=== PATIENT | female | born 2000 | race Caucasian/White ===

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

== ENCOUNTER 2019-02-27 23:38 | Emergency (ER) | payer BC ==
[~2019-02-27] VITALS: Ht 160 cm; Wt 68.0 kg
[2019-02-28 00:14] VITALS: BP_SYST 117
--- NOTE | 2019-02-28 02:07 | NUR ---
Pt ambulatory to bed 2 for evaluation
--- NOTE | 2019-02-28 03:00 | NUR ---
Patient complains of left shoulder pain. Pt states at first, her neck was in pain and gradually radiated to the left shoulder and down to arm. Pt denies any trauma. Pt states she feels "tingling to arm and not so much pain." No other injuries/complaints per patient or noted.
--- NOTE | 2019-02-28 03:15 | NUR ---
ER Dr. Pruitt at bedside examining patient.
[2019-02-28] MEDS ORDERED: KETOROLAC TROMETHAMINE 60 MG/2 ML VIAL IM ONE (03:45)
--- NOTE | 2019-02-28 03:52 | NUR ---
Medication was given, pt tolerated well. No adverse reaction, will continue to monitor.
--- NOTE | 2019-02-28 03:53 | NUR ---
Patient was taken to radiology in stable condition.
--- NOTE | 2019-02-28 04:00 | NUR ---
Patient returned from radiology in stable condition.
[2019-02-28 05:02] LABS: HEMATOCRIT 38.5 % (36-48); MEAN CORPUSCULAR VOLUME 94 fL (79.0-98.0); RED BLOOD CELL COUNT(AUTO) 4.09 MIL/uL (4.2-6.2)
[2019-02-28 05:04] LABS: CALCIUM 8.8 mg/dL (8.4-11.0); CREATININE 0.67 mg/dL (0.55-1.30); POTASSIUM 3.5 mmol/L (3.5-5.1)
[2019-02-28 05:07] LABS: BASOPHILS % (AUTO) 0.6 % (0.0-2.0); EOSINOPHILS # (AUTO) 0.2 K/uL (0.0-0.4); EOSINOPHILS % (AUTO) 3.1 % (0.0-4.0); HEMOGLOBIN 13.8 g/dL (12.0-16.0); LYMPHOCYTES # (AUTO) 2.2 K/uL (1.0-5.5); LYMPHOCYTES % (AUTO) 43.3 % (20.5-51.5); MEAN CORPUSCULAR HEMOGLOBIN 34 pg (27-31); MEAN CORPUSCULAR HGB CONC 36 % (32-36); MONOCYTES # (AUTO) 0.7 K/uL (0.0-1.0); MONOCYTES % (AUTO) 14.6 % (1.7-9.3); NEUTROPHILS # (AUTO) 1.9 K/uL (1.8-7.7); NEUTROPHILS % (AUTO) 38.4 % (40.0-70.0); PLATELET COUNT (AUTO) 240 K/uL (130-430); RED CELL DISTRIBUTION WIDTH 12.4 % (9.0-15.0); WHITE BLOOD COUNT (AUTO) 5.1 K/uL (4.5-11.0)
[2019-02-28 05:18] LABS: ALBUMIN 3.6 g/dL (3.4-4.8); THYROID STIMULATING HORMONE 4.61 uIu/mL (0.36-3.74); TOTAL BILIRUBIN 0.6 mg/dL (0.0-1.0)
[2019-02-28 05:27] VITALS: BP_SYST 120
--- NOTE | 2019-02-28 05:27 | NUR ---
Patient given written and verbal discharge instructions and verbalizes understanding. ER MD discussed with patient the results and treatment provided. Patient in stable condition. ID arm band removed. Rx of Methocarbamol and Ibuprofen given. Patient educated on pain management and to follow up with PMD. Pain Scale 0. Opportunity for questions provided and answered. Medication side effect fact sheet provided.
== END 2019-02-28 05:27 | disposition home or self-care (01) ==
LOC: SED 23:38
DX: M54.12 Radiculopathy, cervical region (principal); R20.2 Paresthesia of skin; E03.9 Hypothyroidism, unspecified
CPT/HCPCS: 36415; 72040; 80053; 84443; 85025; 96372; 99284; J1885